=== PATIENT | female | born 2000 | race Caucasian/White ===

== ENCOUNTER 2022-04-17 11:08 | Emergency (ER) | payer OTHER ==
[~2022-04-17] VITALS: Ht 147.3 cm; Wt 61.2 kg
--- NOTE | 2022-04-17 11:11 | NUR ---
at bedside for evaluation.
--- NOTE | 2022-04-17 11:12 | NUR ---
Patient BIB [facility] for anaphylaxis. Patient ate a bag of trail mix containing brazil nuts, almonds, and walnuts around 1020. Began to feel symptoms such as lip swelling, scratchy throat, and facial flushing. Also states she had hives on her arms. Patient denies shortness of breath at the moment.
[2022-04-17] MEDS ORDERED: DEXAMETHASONE 4 MG TABLET PO ONE (11:15)
[2022-04-17] MEDS ORDERED: DEXAMETHASONE 4 MG TABLET ONE (11:16)
[2022-04-17] MEDS ORDERED: EPIN0.3P3 IM (11:56)
--- NOTE | 2022-04-17 12:45 | NUR ---
Patient denies shortness of breath or any symptoms of allergic reaction at this time.
--- NOTE | 2022-04-17 13:00 | NUR ---
Patient discharged to home in stable condition. Written and verbal after care instructions given. Patient verbalizes understanding of instructions. Stressed follow up or return to ER for worsening s/s.
[2022-04-17 13:02] VITALS: BP 102/72
== END 2022-04-17 13:00 | disposition home or self-care (01) ==
LOC: ER 11:24
DX: T78.05XA Anaphylactic reaction due to tree nuts and seeds, initial encounter (principal); R22.9 Localized swelling, mass and lump, unspecified
CPT/HCPCS: 99283; J8540; A4663